=== PATIENT | male | born 1955 | race African-American/Black ===

== ENCOUNTER 2017-01-09 12:52 | Inpatient (IN) | payer BC ==
[2017-01-08 08:36] LABS: HEMATOCRIT 34.1 % (40.0-51.0); HEMOGLOBIN 11.1 g/dL (13.6-17.8)
[2017-01-08 08:44] LABS: BUN (BLOOD UREA NITROGEN) 16 MG/DL (6-23); CALCIUM, SERUM 8.8 MG/DL (8.5-10.4); CHLORIDE, SERUM 106 MMOL/L (96-112); CO2 (CARBON DIOXIDE) 32 MMOL/L (24-34); CREATININE 1.06 MG/DL (0.70-1.30); GFR AFRICAN AMERICAN 88 ML/MIN (>=60); GFR NON AFRICAN AMERICAN 76 ML/MIN (>=60); GLUCOSE, SERUM 108 MG/DL (60-99); POTASSIUM, SERUM 3.8 MMOL/L (3.5-5.3); SODIUM, SERUM 143 MMOL/L (135-148)
[2017-01-08 09:52] LABS: ASCORBIC ACID (UR NOT ORDER) 20 (NEG); BILIRUBIN, URINE NEGATIVE (NEG); KETONE, URINE NEGATIVE (NEG); LEUKOCYTE ESTERASE(NOT OR LARGE (NEG)
[2017-01-08 09:53] LABS: WBC (NOT ORDERED) (RFLEX) > 182 (0-5)
--- NOTE | ~2017-01-09 | OP ---
Record Of Operation [facility] [address] [place]. [address] NAME: DWAYNE FODR : 57 STATUS : ADM IN PAT#: [id number] AGE: 61 ADM/REG DATE : 01/09/17 MR#: [id number] REPORT SERV DATE: 01/09/17 DICTATED BY: KIP PANTOJA DATE: 01/09/17 REPORT STATUS : Draft TRANSCRIBED BY: MODL DATE: 01/09/17 DATE OF PROCEDURE: 01/09/2017 TITLE OF OPERATION: Robotic-assisted laparoscopic simple prostatectomy. PREOPERATIVE DIAGNOSES: 1. Benign prostatic hypertrophy with obstruction. 2. Urinary retention. POSTOPERATIVE DIAGNOSES: 1. Benign prostatic hypertrophy with obstruction. 2. Urinary retention. INDICATIONS: Mr. Ford is a 61-year-old male with history of a very large prostate over 200 g. He has also urinary retention. He has failed all other management. He is here for simple prostatectomy. ANESTHESIA: General. COMPLICATIONS: None. IMPLANTS: 1. 24-[place] 3-way Laureano catheter. 2. #10 WESLY drain. SPECIMEN: Prostatic adenoma. NARRATIVE: The patient was brought to the operating room, identified by his wristband. General anesthesia was induced. Ancef was given for preoperative antibiotics. He was placed in dorsal lithotomy position, prepped and draped in sterile fashion. His abdomen was then insufflated to a pressure of 15 mmHg using a Veress needle. An 8 mm port was placed in a supraumbilical position. The abdomen was inspected. There were no abnormalities. Two other 8 mm ports were placed in left side of the body and one was placed in right side of the body for the robotic ports. A 12 mm port was placed in the right lower quadrant for assistant cook port and a 5 mm port was placed in the right upper quadrant for assistant cook port. The patient was placed in steep Trendelenburg and the robot was docked. I began the operation by dropping the bladder off the anterior abdominal wall with electrocautery, this exposed pubic bone and some prostate. The fibrofatty tissue overlying the prostate was removed with bipolar cautery and scissors. This was removed from the body and discarded. Next, I made a horizontal cystotomy, just proximal to the bladder neck. This exposed a massive intravesical median lobe, which was delivered into the operative field. This was marked with a 2-0 Vicryl suture in clips for retracting suture. The mucosa overlying the trigone was incised. This dissection was carried through the detrusor fibers onto the prostatic adenoma. The adenoma was then followed down to the junction of the transitional zone and the peripheral zone. Next, the BPH nodule was taken off the transitional zone of the prostate from the base to the apex. Next, the adenoma was dissected off the capsule Record Of Operation [address] [place]. [address] NAME: DWAYNE FORD : 57 STATUS : ADM IN PAT#: [id number] AGE: 61 ADM/REG DATE : 01/09/17 MR#: [id number] REPORT SERV DATE: 01/09/17 DICTATED BY: KIP PANTOJA DATE: 01/09/17 REPORT STATUS : Draft TRANSCRIBED BY: MODAvery DATE: 01/09/17 laterally and anteriorly from the base to the apex. The urethra was identified and incised. The massive adenoma was removed from the prostatic capsule and placed into EndoCatch bag. Pinpoint bleeding was controlled with bipolar cautery. The bladder mucosa was advanced into the prostatic fossa using a running 3-0 V-Loc suture. Care was taken over sew pedicle bleeders at the 5 and 7 o'clock positions. Dorsal venous penetrators were oversewn with a 3 0 V-Loc suture in an anterior U-shaped fashion. Next, the 24-[place] Citizen 3-way Laureano catheter was placed into the bladder with robotic assistance. The cystotomy was closed in two layers. The mucosal layer was closed in a running 3-0 V-Loc suture. The seromuscular layer was closed with a running 2-0 V-Loc suture. The bladder was irrigated, the connection was water tight. The balloon was inflated with 40 mL of sterile water and CBI was initiated. The robot was then undocked. The assistant cook port was closed with 0 Vicryl suture using a Higinio-Hannah device. A #10 WESLY drain was placed through the left most lateral robotic port. The supraumbilical incision was enlarged at skin and fascia level. The adenoma was removed and sent to pathology for analysis. The fascia was closed with 0 Monocryl suture in a dmygog-pf-excbs fashion. The subcutaneous tissues were closed with a 0 Vicryl suture in an interrupted fashion. The skin was closed with 4-0 Monocryl suture in subcuticular fashion. A Dermabond dressing was placed. The patient was awoken from anesthesia and transferred to the recovery room in stable condition. There were no complications. ERIS/CLAY Kip Pantoja MD / [id number] CC: MD Delmar Arambula M.D.
--- NOTE | ~2017-01-09 | PREOPHP ---
PreOp History and Physical [address] [place]. [address] NAME: DWAYNE FORD : 57 STATUS : DIS IN [facility]#: [id number] AGE: 62 ADM/REG DATE : 01/09/17 MR#: [id number] REPORT SERV DATE: 02/06/17 DICTATED BY: KIP PANTOJA DATE: 02/06/17 REPORT STATUS : Draft TRANSCRIBED BY: CLAY DATE: 02/06/17 CHIEF COMPLAINT: BPH with obstruction and urinary retention. HISTORY OF PRESENT ILLNESS: Dwayne is a very pleasant gentleman with a history of an enlarged prostate with urinary retention. He has failed other conservative management. His prostate volume is greater than 100 g. He has been counseled regarding his options. He has elected for robot assisted laparoscopic simple prostatectomy. He is here for that procedure. PAST MEDICAL HISTORY: 1. BPH with obstruction. 2. Urinary retention. 3. Hypertension. 4. Hypercholesterolemia. PAST SURGICAL HISTORY: Microwave therapy for the prostate, history of surgery on his back, history of kidney stone surgery. FAMILY HISTORY: No genitourinary cancers. SOCIAL HISTORY: He does smoke. He does not drink. He does not use illegal drugs. MEDICATIONS: Reviewed and are listed on the chart. ALLERGIES: TO PENICILLIN. REVIEW OF SYSTEMS: A 12-point review of systems was performed. Pertinent positives listed in the HPI. PHYSICAL EXAMINATION: VITAL SIGNS: He is afebrile. Vital signs stable. GENERAL: No acute distress. He appears his stated age. HEENT: His head is normocephalic and atraumatic. LUNGS: Breathing is nonlabored. He is not in respiratory distress. CARDIAC: Pulse is regular in rate and rhythm. ABDOMEN: Soft, nontender, nondistended. : He has normal external genitalia. Laureano catheter is in place. NEURO: He is alert and oriented x3. LABORATORY DATA: No new labs. IMAGING: No new imaging. ASSESSMENT AND PLAN: Dwayne has a very large prostate of 100 g with refractory urinary retention. He has elected for robot assisted laparoscopic simple prostatectomy. Risks and benefits were discussed in detail. Consents were signed. We will proceed as planned. PreOp History and Physical [address] [place]. [address] NAME: DWAYNE FORD : 57 STATUS : DIS IN PAT#: [id number] AGE: 62 ADM/REG DATE : 01/09/17 MR#: [id number] REPORT SERV DATE: 02/06/17 DICTATED BY: KIP PANTOJA DATE: 02/06/17 REPORT STATUS : Draft TRANSCRIBED BY: CLAY DATE: 02/06/17 ERIS/CLAY Kip Pantoja MD / [id number] CC: MD Delmar Arambula M.D.
[2017-01-09 11:32] LABS: BASOPHILS 0.1 %; BASOPHILS ABSOLUTE 0.02 10/3/uL (0.0-0.16); EOSINOPHILS 0.2 %; EOSINOPHILS ABSOLUTE 0.04 10/3/uL (0.0-0.53); HEMATOCRIT 32.5 % (40.0-51.0); HEMOGLOBIN 10.8 g/dL (13.6-17.8); IMMATURE GRANULOCYTES 0.2 %; IMMATURE GRANULOCYTES ABSOLUTE 0.04 10/3/uL (0.0-0.11); LYMPHOCYTES 12.8 %; LYMPHOCYTES ABSOLUTE 2.27 10/3/uL (0.67-4.30); MEAN CORPUS HGB CONC 33.2 g/dL (32.0-36.0); MEAN CORPUSCULAR HEMOGLOB 32.6 pg (26.0-34.0); MEAN CORPUSCULAR VOLUME 98.2 fL (80-100); MEAN PLATELET VOLUME 8.4 fL (9.2-13.0); MONOCYTES 0.9 %; MONOCYTES ABSOLUTE 0.16 10/3/uL (0.21-1.20); NEUTROPHILS 85.8 %; NEUTROPHILS ABSOLUTE 15.17 10/3/uL (2.02-8.40); RBC DISTRIBUTION WIDTH 15.1 % (12.0-16.0); RED CELL COUNT 3.31 10/6/uL (4.7-6.1)
[2017-01-09 11:33] LABS: MANUAL DIFF NO %; PLATELET COUNT 378 10/3/uL (150-400); WHITE BLOOD CELLS 17.7 10/3/uL (4.5-10.5)
[2017-01-09 11:47] LABS: CALCIUM, SERUM 8.8 MG/DL (8.5-10.4); CHLORIDE, SERUM 105 MMOL/L (96-112); CO2 (CARBON DIOXIDE) 32 MMOL/L (24-34); CREATININE 1.15 MG/DL (0.70-1.30); GFR AFRICAN AMERICAN 80 ML/MIN (>=60); GFR NON AFRICAN AMERICAN 69 ML/MIN (>=60); POTASSIUM, SERUM 4.2 MMOL/L (3.5-5.3); SODIUM, SERUM 141 MMOL/L (135-148)
[2017-01-09 11:48] LABS: BUN (BLOOD UREA NITROGEN) 11 MG/DL (6-23); GLUCOSE, SERUM 136 MG/DL (60-99)
[~2017-01-09 12:52] MED LIST: BELLA/OPIUM PR; CEFT5 PO; DSS PO; FERROUS SULF325 M1 PO; FLOMAX4 PO; HYDROCHLOROT25 MG PO; LIPITOR10 PO; LISINOPRIL40 MG PO; RELA5 PO; TIAZA1 PO
[2017-01-10 05:41] LABS: BASOPHILS 0.1 %; BASOPHILS ABSOLUTE 0.01 10/3/uL (0.0-0.16); EOSINOPHILS 0 %; HEMOGLOBIN 9.7 g/dL (13.6-17.8); IMMATURE GRANULOCYTES 0.2 %; IMMATURE GRANULOCYTES ABSOLUTE 0.03 10/3/uL (0.0-0.11); LYMPHOCYTES 9.2 %; LYMPHOCYTES ABSOLUTE 1.48 10/3/uL (0.67-4.30); MEAN CORPUSCULAR HEMOGLOB 32.7 pg (26.0-34.0); MEAN PLATELET VOLUME 8.8 fL (9.2-13.0); MONOCYTES 4.4 %; MONOCYTES ABSOLUTE 0.71 10/3/uL (0.21-1.20); NEUTROPHILS 86.1 %; NEUTROPHILS ABSOLUTE 13.85 10/3/uL (2.02-8.40); PLATELET COUNT 375 10/3/uL (150-400); RED CELL COUNT 2.97 10/6/uL (4.7-6.1); WHITE BLOOD CELLS 16.1 10/3/uL (4.5-10.5)
[2017-01-10 05:42] LABS: BUN (BLOOD UREA NITROGEN) 9 MG/DL (6-23); CALCIUM, SERUM 8.2 MG/DL (8.5-10.4); CHLORIDE, SERUM 108 MMOL/L (96-112); CREATININE 0.87 MG/DL (0.70-1.30); GFR AFRICAN AMERICAN 109 ML/MIN (>=60); GFR NON AFRICAN AMERICAN 94 ML/MIN (>=60); GLUCOSE, SERUM 123 MG/DL (60-99); POTASSIUM, SERUM 4.1 MMOL/L (3.5-5.3); SODIUM, SERUM 141 MMOL/L (135-148)
[2017-01-10 05:43] LABS: CO2 (CARBON DIOXIDE) 23 MMOL/L (24-34)
[2017-01-10 05:55] LABS: HEMATOCRIT 28.5 % (40.0-51.0); MANUAL DIFF NO %
[2017-01-11] MEDS ORDERED: DSS PO (08:01)
[2017-01-11] MEDS ORDERED: BACTRIM DS1 TAB PO (08:01)
[2017-01-11] MEDS ORDERED: PCET PO (08:01)
== END 2017-01-11 11:09 | disposition home or self-care (01) | DRG 718 ==
LOC: 4SO 12:52
PROVIDERS: Family Medicine Sports Medicine; Urology
PROC: 8E0W4CZ Robotic Assisted Procedure of Trunk Region, Percutaneous Endoscopic Approach (ICD-10-PCS; 2017-01-09)
PROC: 0VB04ZZ Excision of Prostate, Percutaneous Endoscopic Approach (ICD-10-PCS; principal; 2017-01-09 06:30)
DX: N40.1 Benign prostatic hyperplasia with lower urinary tract symptoms (principal); R33.9 Retention of urine, unspecified
CPT/HCPCS: 36415; 80048; 81001; 82570; 82962; 85014; 85018; 85025; 86850; 86900; 86901; 87077; 87086; 87186; 88307; 93005; A9270-GY; J0690; J0692; J1170; J2250; J2270; J2405; J2710; J2795; J3010